=== PATIENT | female | born 1985 | race Caucasian/White ===

== ENCOUNTER 2020-03-11 06:25 | Inpatient (IN) | payer OTHER ==
[2020-03-11 07:47] VITALS: BMI 30.2
[2020-03-11] MEDS ORDERED: OXYTOCIN 30 UNITS in 0.9% NS 30 UNIT/500 ML INFUS.BAG IVPB ONE (08:06)
[2020-03-11 09:20] LABS: INR 0.97 (0.83-1.09); PROTHROMBIN TIME (PATIENT) 11.8 SEC (9.7-13.0)
[2020-03-11 09:23] LABS: ACTIVATED PTT 26.5 SECONDS (25.2-36.5)
[2020-03-11 09:33] LABS: POTASSIUM 4.3 mmol/L (3.5-5.1)
[2020-03-11 09:34] LABS: CALCIUM 8.6 mg/dL (8.5-10.1)
[2020-03-11 09:38] LABS: CREATININE 0.5 mg/dL (0.55-1.3)
[2020-03-11 10:53] LABS: BASO % 0.6 % (0-2.0); EOS % 1.4 % (0-4.5); HEMATOCRIT 29.1 % (32.4-45.2); HEMOGLOBIN 9.4 GM/dL (10.7-15.3); LYMPH % 24.5 % (8-40); MCHC 32.2 g/dl (32.0-36.0); MEAN CELL VOLUME 74.5 fl (80-96); MEAN PLT VOLUME 8.5 fl (7.5-11.1); MONO % 11.1 % (3.8-10.2); NEUT % 62.4 % (42.8-82.8); PLATELET COUNT 430 K/MM3 (134-434); RDW 18.5 % (11.6-15.6); WHITE BLOOD COUNT 9.9 K/mm3 (4.0-10.0)
[2020-03-11 11:58] LABS: PLATELET ESTIMATE NORMAL
[2020-03-11] MEDS ORDERED: OXYTOCIN 30 UNITS in 0.9% NS 30 UNIT/500 ML INFUS.BAG IVPB SCH (12:45)
[2020-03-11] MEDS ORDERED: DEXTROSE 5%-LACTATED RINGERS 1,000 ML IV SCH (12:45)
[2020-03-11] MEDS ORDERED: FENTANYL/BUPIVACAINE/NS/PF - PCEA - 50 ML DISP.SYRIN EP ONE ×3 (13:50→22:26)
[2020-03-11] MEDS ORDERED: ELECTROLYTE-148 SOLN 500 ML IV ONE (13:50)
[2020-03-11] MEDS ORDERED: BUPIVACAINE HCL/PF 0.25% (2.5MG/ML) 10 ML VIAL ONE (13:53)
[2020-03-11] MEDS ORDERED: NALOXONE HCL 0.4 MG/ML VIAL IVPUSH PRN (14:26)
[2020-03-11] MEDS ORDERED: FENTANYL/BUPIVACAINE/NS/PF - PCEA - 50 ML DISP.SYRIN EP SCH (14:30)
[2020-03-11] MEDS: ELECTROLYTE-148 SOLN 1,000 ML IV SCH ×2 (14:50→18:25)
[2020-03-11] MEDS ORDERED: PCA PUMP NR ONE ×2 (18:28→22:26)
[2020-03-11] MEDS ORDERED: LIDO 2%/EPI 1:200000 PRESRVFRE (20 ML SDVIAL) ONE (21:27)
[2020-03-11] MEDS ORDERED: OXYTOCIN 20 UNITS in 0.9% NS 40 UNIT/2,000 ML INFUS.BAG IV ONE (22:59)
[2020-03-11] MEDS ORDERED: PROPOFOL 20 ML ONE (23:04)
[2020-03-11] MEDS ORDERED: SUCCINYLCHOLINE CHLORIDE 200 MG/10 ML SYRINGE ONE (23:04)
[2020-03-11] MEDS ORDERED: morphine SULFATE/PF 0.5 MG/ML (2cc Syringe - QUVA) ONE ×2 (23:27)
[2020-03-12] MEDS ORDERED: SENNOSIDES/DOCUSATE COMBO (SENNA PLUS) TABLET (UD) PO PRN (00:22)
[2020-03-12] MEDS ORDERED: IBUPROFEN 800 MG/8 ML IJ IVPB PRN (00:22)
[2020-03-12] MEDS ORDERED: oxyCODONE HCL 5 MG TABLET PO PRN (00:22)
[2020-03-12] MEDS ORDERED: ONDANSETRON 4 MG/2 ML VIAL IVPB PRN (00:22)
[2020-03-12] MEDS ORDERED: OXYTOCIN 20 UNITS in 0.9% NS 20 UNIT/1,000 ML INFUS.BAG IV SCH (00:30)
[2020-03-12] MEDS ORDERED: OXYTOCIN 20 UNITS in 0.9% NS 20 UNIT/1,000 ML INFUS.BAG IV ONE (01:44)
[2020-03-12] MEDS: ACETAMINOPHEN 1000 MG/100 ML VIAL (NON FORMULARY) IVPB PRN ×2 (02:16→23:36)
[2020-03-12] MEDS: CEFAZOLIN 2 GM/D5W 2 GM/50 ML ML IVPB SCH ×3 (02:53→17:53)
[2020-03-12] MEDS: ACETAMINOPHEN 325 MG TABLET (FP) PO PRN ×2 (10:57→17:53)
[2020-03-12] MEDS: IBUPROFEN 600 MG TABLET (FP) PO PRN ×2 (10:57→17:52)
[2020-03-12] MEDS: SIMETHICONE 80 MG TAB.CHEW (FP) PO PRN ×2 (10:57→17:52)
[2020-03-13] MEDS ORDERED: BISACODYL 10 MG SUPP.RECT RC PRN (00:22)
[2020-03-13] MEDS: CEFAZOLIN 2 GM/D5W 2 GM/50 ML ML IVPB SCH ×2 (01:14→12:08)
[2020-03-13] MEDS: IBUPROFEN 600 MG TABLET (FP) PO PRN ×3 (04:03→17:04)
[2020-03-13] MEDS: SIMETHICONE 80 MG TAB.CHEW (FP) PO PRN ×3 (04:03→17:04)
[2020-03-13] MEDS: ACETAMINOPHEN 325 MG TABLET (FP) PO PRN ×2 (04:09→17:05)
[2020-03-13 08:56] LABS: BASO % 0.3 % (0-2.0); EOS % 0.9 % (0-4.5); HEMATOCRIT 18.1 % (32.4-45.2); MCH 23.5 pg (25.7-33.7); MCHC 32.3 g/dl (32.0-36.0); MEAN PLT VOLUME 8.1 fl (7.5-11.1); MONO % 7.2 % (3.8-10.2); NEUT % 77.6 % (42.8-82.8); PLATELET COUNT 381 K/MM3 (134-434); RBC 2.48 M/mm3 (3.60-5.2); RDW 18.7 % (11.6-15.6); WHITE BLOOD COUNT 16.9 K/mm3 (4.0-10.0)
[2020-03-13 09:30] LABS: HEMOGLOBIN 5.8 GM/dL (10.7-15.3)
[2020-03-13 11:24] LABS: BASO % 0.4 % (0-2.0); EOS % 0.8 % (0-4.5); HEMATOCRIT 19.2 % (32.4-45.2); LYMPH % 10.7 % (8-40); MCH 23.3 pg (25.7-33.7); MCHC 31.5 g/dl (32.0-36.0); MEAN CELL VOLUME 73.8 fl (80-96); MEAN PLT VOLUME 8.2 fl (7.5-11.1); MONO % 4.6 % (3.8-10.2); NEUT % 83.5 % (42.8-82.8); PLATELET COUNT 384 K/MM3 (134-434); RBC 2.61 M/mm3 (3.60-5.2); RDW 19.2 % (11.6-15.6); WHITE BLOOD COUNT 15.2 K/mm3 (4.0-10.0)
[2020-03-13 11:29] LABS: HEMOGLOBIN 6.1 GM/dL (10.7-15.3)
[2020-03-13 20:52] VITALS: BP 131/85; PULSE 90; TEMP 98.6
[2020-03-13] MEDS ORDERED: ASCORBIC ACID 500 MG TABLET (FP) PO SCH (22:00)
[2020-03-13] MEDS ORDERED: FERROUS SO4 325 MG TABLET (FP) PO SCH (22:00)
== END 2020-03-13 18:00 | disposition home or self-care (01) | DRG 540 ==
LOC: JLDR 06:25 → J3W 03-12 01:59
PROVIDERS: ADMIT Specialist; ATTEND Specialist
PROC: 10D00Z1 Extraction of Products of Conception, Low, Open Approach (ICD-10-PCS; principal; 2020-03-11)
PROC: 10907ZC Drainage of Amniotic Fluid, Therapeutic from Products of Conception, Via Natural or Artificial Opening (ICD-10-PCS; 2020-03-11)
PROC: 3E033VJ Introduction of Other Hormone into Peripheral Vein, Percutaneous Approach (ICD-10-PCS; 2020-03-11)
DX: O48.0 Post-term pregnancy (principal); O62.2 Other uterine inertia; O32.9XX0 Maternal care for malpresentation of fetus, unspecified, not applicable or unspecified; O69.81X0 Labor and delivery complicated by cord around neck, without compression, not applicable or unspecified; Z3A.40 40 weeks gestation of pregnancy; Z37.0 Single live birth
CPT/HCPCS: 36415; 80048; 85025; 85610; 85730; 86780; 86850; 86900; 86901; 88307-TC; J0131